=== PATIENT | female | born 1990 | race Two or more races ===

== ENCOUNTER → 2017-10-25 | Outpatient (CLI) | payer MEDICAID ==
[2017-10-25 19:52] LABS: IRON(TIBC) 60.6 ug/dL (37-170)
[2017-10-26 09:46] LABS: ALANINE AMINOTRANSFERASE 331 U/L (9-52); ALBUMIN 4.2 g/dL (3.5-5.0); ALKALINE PHOSPHATASE 341 U/L (38-126); ASPARTATE AMINO TRANSFERASE 186 U/L (14-36); BILIRUBIN,DIRECT 0.5 mg/dL (0.0-0.4); BILIRUBIN,TOTAL 0.5 mg/dL (0.2-1.3); TOTAL PROTEIN 7.2 g/dL (6.3-8.2)
[2017-10-27 06:39] LABS: HEPATITIS A AB IGM Negative (Negative); HEPATITIS B CORE AB IGM Negative (Negative); HEPATITS B SURFACE ANTIGEN Negative (Negative)
[2017-10-27 07:06] LABS: HEPATITIS C VIRUS ANTIBODY <0.1 s/co ratio (0.0-0.9)
[2017-10-28 07:18] LABS: MITOCHONDRIAL (M2) ANTIBODY 9.3 Units (0.0-20.0)
== END ==
LOC: OD 17:36
PROVIDERS: ATTEND Internal Medicine Gastroenterology
DX: Z00.00 Encounter for general adult medical examination without abnormal findings (principal)
CPT/HCPCS: 36415; 80074; 80076; 81332; 82390; 82728; 83540; 83550; 86038; 86256